=== PATIENT | female | born 1930 | race Caucasian/White ===

== ENCOUNTER 2016-11-23 08:00 | Inpatient (IN) | payer OTHER, MEDICARE ==
[~2016-11-23] VITALS: Ht 154.9 cm; Wt 62.5 kg
[~2016-11-23 08:00] MED LIST: AMLODIPINE BESYL5 MG PO; ATROPINE 1100 DROP/5 RIGHT EYE; AZOPT 1% O200 DROP/1 RIGHT EYE; AZOR 5/20 MG1 TABLET PO; CLARITIN10 M3 PO; COMBIGAN O20 DROP/5 RIGHT EYE; LORATADINE10 M2 PO; LOSARTAN POTAS100 MG PO; LYRICA50 MG PO; OCUFLOX 0.100 DROP/5 RIGHT EYE; OXCARBAZEPINE300 MG PO; PRED FORTE100 DROP/5 RIGHT EYE; PRILOSEC20 MG PO; SUDAFED30 MG PO; SUPHEDRIN30 MG PO; TRILEPTAL300 MG PO; TYLENOL EXTRA500 MG PO; XALATAN 0.50 DROP/2. RIGHT EYE; ZyrTEC PO
[2016-11-23] MEDS ORDERED: CALCIUM500 M4 PO (08:39)
[2016-11-23] MEDS ORDERED: ALLEGRA ALLERG180 MG PO (08:39)
[2016-11-23] MEDS ORDERED: DULOXETINE HCL20 MG PO ×2 (08:40→08:41)
[2016-11-23] MEDS ORDERED: OXCARBAZEPINE300 MG PO (08:42)
[2016-11-23 08:55] LABS: EOSINOPHIL (%) 0.9 % (0-5); EOSINOPHIL COUNT 0.1 K/uL (0-0.3); HEMATOCRIT 41.3 % (36.0-46.0); IMMATURE GRANULOCYTE (%) 0.3 % (0.0-0.7); INSTRUMENT ABS NEUTROPHIL CT 11.5 K/uL; LYMPHOCYTE COUNT 1.4 K/uL (1.0-2.8); MCH 28.7 PG (29.0-34.0); MCHC 32.7 G/DL (30.0-36.0); MCV 87.9 FL (83-99); MEAN PLAT.VOLUME 10.6 uM^3 (9.5-12.4); MONOCYTE (%) 6.3 % (3-12); MONOCYTE COUNT 0.9 K/uL (0-0.8); NEUTROPHIL (%) 82.1 % (45-76); NEUTROPHIL COUNT 11.5 K/uL (1.8-6.4); PLATELET COUNT 255 K/uL (156-360); RBC DIS.WIDTH-CV 13.3 % (11.8-14.6); RBC DIS.WIDTH-SD 43.1 % (39-53)
[2016-11-23 09:08] LABS: CHLORIDE 96 mEq/L (99-109); POTASSIUM 3.8 mEq/L (3.7-5.4); SODIUM 131 mEq/L (136-147)
[2016-11-23 09:10] LABS: GLUCOSE 111 mg/dL (70-99)
[2016-11-23 09:11] LABS: ANION GAP 10 MEQ/L (2-14)
[2016-11-23 09:14] LABS: GFR ESTIMATE (CALCULATED) > 59 mL/min/
[2016-11-23 09:15] LABS: UREA NITROGEN (BUN) 12 mg/dL (9-23)
[2016-11-23 12:12] LABS: TROP-I INTERPRETATION NEGATIVE; TROPONIN-I < 0.01 ng/mL (0.0-0.30)
[2016-11-23] MEDS ORDERED: ALLERGY RELIE15.8 ML BOTH NARES (12:15)
[2016-11-23] MEDS ORDERED: KEFLEX500 MG PO (12:28)
[2016-11-23 15:21] VITALS: BP 110/56
[2016-11-23] MEDS ORDERED: ILEVRO1.7 ML RIGHT EYE (16:29)
[2016-11-23] MEDS ORDERED: DUREZOL 0.100 DROP/5 RIGHT EYE (16:29)
[2016-11-23] MEDS ORDERED: BESIVANCE5 ML RIGHT EYE (16:29)
[2016-11-23 17:16] LABS: TROP-I INTERPRETATION NEGATIVE; TROPONIN-I 0.02 ng/mL (0.0-0.30)
[2016-11-23 18:54] LABS: ADD MIUA? YES; BILIRUBIN NEGATIVE; BLOOD SMALL; COLOR YELLOW ((YELLOW)); GLUCOSE (STRIP) NEGATIVE; KETONES NEGATIVE; LEUKOCYTES NEGATIVE; NITRITE NEGATIVE; PROTEIN (STRIP) NEGATIVE; SPECIFIC GRAVITY 1.023 (1.000-1.030); UROBILINOGEN 0.2 MG/DL (0.2-1.0)
[2016-11-23 19:08] LABS: BACTERIA RARE /HPF; EPITHELIAL CELLS RARE /HPF; MUCUS TRACE /LPF; UCUL ADDED? NO
[2016-11-23 19:58] VITALS: BP 101/51
[2016-11-23 22:13] LABS: TROP-I INTERPRETATION NEGATIVE; TROPONIN-I < 0.01 ng/mL (0.0-0.30)
[2016-11-24 00:28] VITALS: BP 105/54
[2016-11-24 04:13] VITALS: BP 116/58
[2016-11-24 08:05] LABS: HEMATOCRIT 33.7 % (36.0-46.0); MCH 28.9 PG (29.0-34.0); MCHC 32.9 G/DL (30.0-36.0); MCV 87.8 FL (83-99); PLATELET COUNT 199 K/uL (156-360); RBC DIS.WIDTH-CV 13.9 % (11.8-14.6); RBC DIS.WIDTH-SD 44.3 % (39-53); RED BLOOD COUNT 3.84 M/uL (3.80-5.20)
[2016-11-24 08:42] LABS: ANION GAP 9 MEQ/L (2-14); CHLORIDE 100 MEQ/L (99-109); GFR ESTIMATE (CALCULATED) > 59 mL/min/; GLUCOSE 96 mg/dL (70-99); POTASSIUM 3.8 MEQ/L (3.7-5.4); SAMPLE HEMOLYSIS CHECK 0; SAMPLE ICTERIC CHECK 0; SAMPLE LIPEMIA CHECK 0; SODIUM 132 MEQ/L (136-147); UREA NITROGEN (BUN) 16 mg/dL (9-23)
[2016-11-24 09:17] LABS: WHITE BLOOD COUNT 7.6 K/uL (4.1-10.2)
[2016-11-24 09:34] VITALS: BP 116/58
[2016-11-24 12:15] VITALS: BP 115/60
[2016-11-24 17:02] VITALS: BP 118/58
[2016-11-24 20:09] VITALS: BP 137/1
[2016-11-25] VITALS (7 sets, daily range): BP systolic 137–182; BP diastolic 67–95
[2016-11-26 04:50] VITALS: BP 147/71
[2016-11-26 06:24] LABS: HEMATOCRIT 37.1 % (36.0-46.0); MCH 28.8 PG (29.0-34.0); MCHC 32.9 G/DL (30.0-36.0); MCV 87.7 FL (83-99); PLATELET COUNT 233 K/uL (156-360); RBC DIS.WIDTH-CV 13.6 % (11.8-14.6); RBC DIS.WIDTH-SD 43.8 % (39-53); RED BLOOD COUNT 4.23 M/uL (3.80-5.20); WHITE BLOOD COUNT 6.2 K/uL (4.1-10.2)
[2016-11-26 07:11] LABS: ANION GAP 9 MEQ/L (2-14); CHLORIDE 97 MEQ/L (99-109); GFR ESTIMATE (CALCULATED) > 59 mL/min/; GLUCOSE 91 mg/dL (70-99); POTASSIUM 4.4 MEQ/L (3.7-5.4); SAMPLE HEMOLYSIS CHECK 0; SAMPLE ICTERIC CHECK 0; SAMPLE LIPEMIA CHECK 0; SODIUM 132 MEQ/L (136-147); UREA NITROGEN (BUN) 18 mg/dL (9-23)
[2016-11-26 08:30] VITALS: BP 129/67
[2016-11-26 11:20] VITALS: BP 127/70
[2016-11-26 15:10] VITALS: BP 138/66
[2016-11-26 19:35] VITALS: BP 134/65
[2016-11-26 23:00] VITALS: BP 131/64
[2016-11-27 04:50] VITALS: BP 131/70
[2016-11-27 06:34] LABS: HEMATOCRIT 37.9 % (36.0-46.0); MCH 28.7 PG (29.0-34.0); MCV 87.1 FL (83-99); MEAN PLAT.VOLUME 10.4 uM^3 (9.5-12.4); PLATELET COUNT 242 K/uL (156-360); RBC DIS.WIDTH-CV 13.7 % (11.8-14.6); RBC DIS.WIDTH-SD 43.8 % (39-53); RED BLOOD COUNT 4.35 M/uL (3.80-5.20); WHITE BLOOD COUNT 6.4 K/uL (4.1-10.2)
[2016-11-27 06:53] LABS: ANION GAP 8 MEQ/L (2-14); C-REACTIVE PROTEIN 23.2 MG/L (0-10); CHLORIDE 95 MEQ/L (99-109); GFR ESTIMATE (CALCULATED) > 59 mL/min/; GLUCOSE 84 mg/dL (70-99); POTASSIUM 4.8 MEQ/L (3.7-5.4); SAMPLE HEMOLYSIS CHECK 0; SAMPLE ICTERIC CHECK 0; SAMPLE LIPEMIA CHECK 0; SODIUM 133 MEQ/L (136-147); UREA NITROGEN (BUN) 21 mg/dL (9-23)
[2016-11-27 07:34] LABS: ERTH.SED.RATE 33 MM/HR (0-30)
[2016-11-27 07:42] VITALS: BP 137/72
[2016-11-27] MEDS ORDERED: CIPROFLOXACIN H10 ML BOTH EYES (15:19)
[2016-11-27] MEDS ORDERED: TOBRADEX EYE O3.5 GM RIGHT EYE (15:21)
[2016-11-27] MEDS ORDERED: CEFTRIAXONE2 G1 IV (15:29)
== END 2016-11-27 18:30 | disposition home health service (06) | DRG 862 ==
LOC: EME → EDBD 08:00 → EDOF 13:33 → 4EAST 13:33
PROVIDERS: Emergency Medicine; Hospitalist; Internal Medicine; Internal Medicine Infectious Disease
DX: T81.4XXA Infection following a procedure, initial encounter (principal); A41.9 Sepsis, unspecified organism; H05.011 Cellulitis of right orbit; B95.7 Other staphylococcus as the cause of diseases classified elsewhere; H44.001 Unspecified purulent endophthalmitis, right eye; E22.2 Syndrome of inappropriate secretion of antidiuretic hormone; Y83.8 Other surgical procedures as the cause of abnormal reaction of the patient, or of later complication, without mention of misadventure at the time of the procedure; E86.0 Dehydration; R55 Syncope and collapse; E22.0 Acromegaly and pituitary gigantism; I10 Essential (primary) hypertension; E78.5 Hyperlipidemia, unspecified; H40.9 Unspecified glaucoma; H54.41 Blindness, right eye, normal vision left eye; J30.2 Other seasonal allergic rhinitis; Z96.641 Presence of right artificial hip joint; Z96.652 Presence of left artificial knee joint; Z87.891 Personal history of nicotine dependence
CPT/HCPCS: 70450; 71010; 76937; 80048; 80202; 81003; 83605; 84484; 85025; 85027; 85651; 86140; 87070; 87077; 87186; 93005; 93306; 93880; 99281; 99285; C1894; J0690; J0692; J1644; J3370; J7030; J7050